=== PATIENT | female | born 1965 | race Caucasian/White ===

== ENCOUNTER → 2023-04-02 19:18 | Outpatient (REF) | payer BC, SELFPAY | LOC: MRI 19:18 | PROVIDERS: ATTENDING PHYSICIAN Physical Medicine & Rehabilitation; FAMILY PHYSICIAN Internal Medicine | DX: M96.1 Postlaminectomy syndrome, not elsewhere classified (principal) | CPT/HCPCS: 72158 ==

== ENCOUNTER 2023-06-29 15:43 | Emergency (ER) | payer BC, SELFPAY ==
[2023-06-29 15:44] VITALS: BP 182/94
--- NOTE | 2023-06-29 17:01 | ED.GENMED ---
History of Present Illness
General
Chief Complaint: Heart Rate Problem
Time Seen by Provider: 06/29/23 17:01
Travel History
Have you had any contact with someone who has COVID-19?: No
Do you have any symptoms of coronavirus? Fever > 100 degrees, chills, cough, shortness of breath, sore throat, loss of taste or smell, muscle aches, or headache?: No
History of Present Illness
History of Present Illness:
HPI: Patient presents with dizziness associate with nausea. The symptoms started nearly 1 week ago. The symptoms seem to be worsening. She went to urgent care where they found her to have a heart rate about 45 so they wanted her to come in here
for further evaluation. She has no associated headache but think she has a little bit of a headache now because of 'distress'. She was told that her blood pressure was also high around 180 earlier as well. The symptoms clearly worsen with
position changes.
EXAM:
GENERAL: Well appearing in no distress but she prefers to keep her head still
HEENT: Moist oral mucosa
CARDIOVASCULAR: No murmurs, normal heart rate, regular rhythm, No chest wall tenderness
PULMONARY: No respiratory distress, breath sounds are clear and equal
ABDOMEN: Soft with no peritoneal signs, no tenderness
NEUROLOGIC: Excellent strength all extremities, no coordination deficits, normal finger-nose testing, positive Cathy-Hallpike maneuver
PSYCHIATRIC: Appropriate mental status, normal insight and judgement
EXTREMITIES: Nontender, no edema, moves all extremities equally
SKIN: No rash, no lesions
TIME OF INITIAL ENCOUNTER: 5 PM
NUMBER AND COMPLEXITY OF PROBLEMS ADDRESSED AT THE ENCOUNTER
� Chronic conditions affecting care: High blood pressure, hyperlipidemia, asthma, hypothyroidism
� Acute Exacerbation and/or Progression of Chronic Illness: This is an acute problem
� Differential Diagnosis includes: Positional vertigo, intracranial hemorrhage/mass very unlikely, CVA very unlikely, dehydration
AMOUNT AND/OR COMPLEXITY OF DATA TO BE REVIEWED AND ANALYZED
� I performed an independent evaluation of and my interpretation is:
EKG: Sinus 45, normal axis, nonspecific ST abnormality, in 2017, the rate was 66
CT: I personally reviewed CT imaging of the brain and see no acute abnormality
X-rays:
Laboratory Studies: CBC and chemistries unremarkable, thyroid testing also normal
Other:
� Review of other/old records: I reviewed labs from 2017 which are relatively unremarkable
� Clinical information was obtained by an independent historian: Spoke to the at bedside
� Prescriptions/Medications Considered but not given: Offered and considered meclizine however the patient declines
� Further testing considered but not performed:
RISK OF COMPLICATIONS AND/OR MORBIDITY OR MORTALITY OF PATIENT MANAGEMENT
� Social determinants of health affecting care: Lives at home
� Discussion with other providers:
� Escalation of care including admission/observation vs risk of discharge considered: The patient has a positive Windham-Hallpike maneuver, she has a nonfocal neurologic exam�strongly suspect BPPV. However given the patient's age
and rather debilitating symptoms will obtain CT imaging. We have also given IV fluids. Patient returned from CT around 7:30 PM and reported nausea�she would like Zofran which I have ordered. Reassessed patient at 8:30 PM, she appears fairly
comfortable. She feels comfortable with going home. Will give short course of Zofran at home.
Past History
Past History
ED Past Medical History: Other; Negative GERD, HTN or Hypercholesterolemia
ED Past Surgical History: Orthopedic; Negative Appendectomy or Bowel resection
Social History
Tobacco: Non-smoker
Alcohol: None
Drug: None
Personal:
Living: with family
Employment: Employed
Family History
Family History: Hypertension
Phy Exam
Physical Exam
Physical Exam:
See HPI
Course
Orders/Labs/Results
Orders:
Orders
06/29/23 15:47
ECG [Electrocardiogram (*1)] Urgent
Reason for Study: Bradycardia / Tachycardia
06/29/23 15:48
EKG- Treatment ONCE
06/29/23 17:02
0.9% Sodium Chloride 1000 ml [Nss] 1,000 ml IV BOLUS
06/29/23 17:13
CT Head W/o Iv Contrast Urgent
Comment:
Reason For Exam: severe acute dizziness
06/29/23 17:15
Complete Blood Count/With Diff Urgent
Comprehensive Metabolic Panel Urgent
Magnesium Urgent
TSH Reflex To Free T4 Urgent
06/29/23 19:36
Ondansetron Injectable [Zofran] 4 mg IV NOW STA
Abnormal Lab Results
06/29/23
17:15
MCH 31.8 H pg
(27.0-31.0)
RDW 11.2 L %
(11.5-14.5)
BUN 18 H mg/dl
(7-17)
Creatinine 0.5 L mg/dL
(0.6-1.0)
06/29/23 17:15
06/29/23 17:15
Vital Signs
Initial and Last Documented VS:
Initial Vital Signs
Temp Pulse Resp BP Pulse Ox
97.8 F 53 18 182/94 99
06/29/23 15:44 06/29/23 15:44 06/29/23 15:44 06/29/23 15:44 06/29/23 15:44
Last Documented Vital Signs
Temp Pulse Resp BP Pulse Ox
97.8 F 57 11 138/72 99
06/29/23 15:44 06/29/23 19:15 06/29/23 19:15 06/29/23 19:00 06/29/23 19:15
*Critical Care Note
Total Time (30-74mins, 75-104mins- exclusive of procedures): Not Applicable
ED Attending Note
-
Portions of this chart may have been created with voice recognition software.� Occasional wrong word or��sound alike� substitutions may have occurred due to the inherent limitations of voice recognition software.
Discharge Plan
Departure
Patient Disposition: Home (Routine Discharge)
Date of Disposition: 06/29/23
Time of Disposition: 20:31
Patient with high blood pressure during this ER visit?: Yes
Discharge Problem:
Benign paroxysmal positional vertigo
Instructions: Vestibular Exercises, Vertigo ED
Prescriptions:
New
ondansetron HCl 4 mg tablet
4 mg PO Q8H PRN (Reason: nausea and vomiting) Qty: 12 0RF
No Action
atenolol 25 MG tablet
50 mg PO DAILY
meloxicam 7.5 MG tablet
1 tab PO DAILY
ibuprofen 600 MG tablet
1 tab PO DAILY
ondansetron 4 MG tablet,disintegrating
4 mg PO TIDPRN PRN (Reason: nausea/vomiting) Qty: 9 0RF
benzonatate 100 MG capsule
100 mg PO TIDPRN PRN (Reason: cough) Qty: 15 0RF
Referrals:
Sharhiar Tobias MD [Family Provider] -
Activity Restrictions/Additional Instructions:
Please call [phone] to arrange for vestibular physical therapy. I sent a prescription for Zofran to your pharmacy. Basic blood work is unremarkable including thyroid level. CAT scan of the brain shows no acute abnormality. Return here if
worse. Follow with your primary care doctor.
Interventions
Interventions:
*ED COVID-19 Vaccine History Last Done: 06/29/23 15:44
ED- Cardiac Assessment Last Done: 06/29/23 17:15
ED- Pulmonary Assessment Last Done: 06/29/23 17:15
Discharge Date and Time
Print Language: [id number]
[2023-06-29 17:02] VITALS: BP 178/85
[2023-06-29] MEDS: NSS 1000 IV (17:16)
[2023-06-29 17:23] LABS: % Basophils 1.1 % (0-2); % Eosinophils 5.1 % (0-6); % Immature Granulocytes 0.2 % (0-0.5); % Monocytes 8.7 % (1.7-9.3); % Neutrophils 53.9 % (42.2-75.2); Absolute Basophils 0.1 10^3/uL (0-0.2); Absolute Eosinophils 0.3 10^3/uL (0-0.7); Absolute Monocytes 0.6 10^3/uL (0.1-0.6); Absolute Neutrophils 3.5 10^3/uL (1.4-6.5); Hematocrit 38.5 % (37.0-47.0); Hemoglobin 13.8 g/dL (12.0-16.0); Mean Corp Hgb Conc. 35.8 g/dL (33.0-37.0); Mean Corpuscular Hgb 31.8 pg (27.0-31.0); Mean Corpuscular Volume 88.7 fL (81.0-99.0); Mean Platelet Volume 9.5 fL (7.4-10.4); Nucleated Red Blood Cells % 0 %; Platelet Count 202 10^3/uL (130-400); Red Blood Cell Count 4.34 10^6/uL (4.20-5.40); Red Cell Dist. Width 11.2 % (11.5-14.5); White Blood Cell Count 6.5 10^3/uL (4.8-10.8)
[2023-06-29 17:36] LABS: ALT (SGPT) 19 U/L (0-35); AST (SGOT) 30 U/L (14-36); Albumin 4.4 g/dl (3.5-5.0); Alkaline Phosphatase 61 U/L (38-126); Blood Urea Nitrogen 18 mg/dl (7-17); Calcium 9.5 mg/dl (8.4-10.2); Carbon Dioxide 27 mmol/L (22-30); Chloride 107 mmol/L (98-107); Glucose 91 mg/dl (70-99); Magnesium 2.1 mg/dl (1.6-2.3); Potassium 4.4 mmol/L (3.5-5.1); Sodium 136 mmol/L (135-145); Total Bilirubin 0.7 mg/dl (0.2-1.3); Total Protein 7.1 g/dl (6.3-8.2); eGFR > 60.00
[2023-06-29 18:00] VITALS: BP 138/81
[2023-06-29 18:12] LABS: TSH Reflex To Free T4 1.31 uIU/ml (0.47-4.68)
[2023-06-29 19:00] VITALS: BP 138/72
[2023-06-29] MEDS: ZOFRAN 4 MG IV (19:42)
[2023-06-29 20:00] VITALS: BP 142/78
== END 2023-06-29 20:40 | disposition home or self-care (01) ==
LOC: EMR 15:43
PROVIDERS: EMERGENCY PHYSICIAN Emergency Medicine; FAMILY PHYSICIAN Internal Medicine
DX: H81.10 Benign paroxysmal vertigo, unspecified ear (principal); I10 Essential (primary) hypertension
CPT/HCPCS: 99285; 96374; 96361; 70450; 80053; 83735; 84443; 85025; 93005

== ENCOUNTER 2023-07-09 07:03 | Outpatient (RCR) | payer BC, SELFPAY | END 2023-07-09 23:59 | disposition home or self-care (01) | LOC: RPT 07:03 | PROVIDERS: ATTENDING PHYSICIAN Internal Medicine | DX: H81.10 Benign paroxysmal vertigo, unspecified ear (principal); R42 Dizziness and giddiness; Z73.6 Limitation of activities due to disability | CPT/HCPCS: 97112; 97163; 97530 ==

== ENCOUNTER → 2024-03-18 08:55 | Outpatient (REF) | payer BC, SELFPAY | LOC: WDC 08:55 | PROVIDERS: ATTENDING PHYSICIAN Nurse Practitioner | DX: Z12.31 Encounter for screening mammogram for malignant neoplasm of breast (principal) | CPT/HCPCS: 77063; 77067 ==